=== PATIENT | male | born 1980 | race Caucasian/White ===

== ENCOUNTER 2018-03-01 23:14 | Emergency (ER) | payer OTHER ==
[~2018-03-01] VITALS: Ht 175.3 cm; Wt 90.7 kg
[2018-03-01 23:15] VITALS: BP 135/56; Ht 175.3 cm; Wt 90.7 kg
== END 2018-03-02 00:46 | disposition left against medical advice (07) ==
LOC: ED 23:14
DX: Z53.21 Procedure and treatment not carried out due to patient leaving prior to being seen by health care provider (principal)